=== PATIENT | male | born 1970 | race Caucasian/White ===

== ENCOUNTER 2023-05-01 21:49 | Emergency (ER) | payer OTHER, BC ==
[2023-05-01] MEDS: Amoxicillin/Clavulanate K 875-125 MG Tab PO ONE (22:40)
== END 2023-05-01 22:45 | disposition home or self-care (01) ==
LOC: JP.ED 21:49
DX: S51.852A Open bite of left forearm, initial encounter (principal); J45.909 Unspecified asthma, uncomplicated; K21.9 Gastro-esophageal reflux disease without esophagitis; Z86.16 Personal history of COVID-19; Z79.899 Other long term (current) drug therapy; Z79.82 Long term (current) use of aspirin; Z88.8 Allergy status to other drugs, medicaments and biological substances; Z88.5 Allergy status to narcotic agent; W50.3XXA Accidental bite by another person, initial encounter; Y93.72 Activity, wrestling; Y92.149 Unspecified place in prison as the place of occurrence of the external cause
CPT/HCPCS: 99283; A9270